=== PATIENT | male | born 1965 | race Caucasian/White ===

== ENCOUNTER 2021-09-28 19:34 | Emergency (ER) | payer SELFPAY ==
[2021-09-28] MEDS ORDERED: CLEOCIN HCL300 MG PO (21:47)
== END 2021-09-28 21:55 | disposition home or self-care (01) ==
LOC: ER1 19:34
DX: K04.7 Periapical abscess without sinus (principal); F17.200 Nicotine dependence, unspecified, uncomplicated
CPT/HCPCS: 99283; J1885